=== PATIENT | male | born 1995 | race Hispanic/Latino ===

== ENCOUNTER 2022-08-24 01:14 | Emergency (ER) | payer OTHER ==
[~2022-08-24] VITALS: Ht 177.8 cm; Wt 97.8 kg
[2022-08-24] MEDS ORDERED: 0.9%NACL 1000ML 1,000 ML IV ONE ×2 (01:30→05:00)
[2022-08-24] MEDS ORDERED: IBUPROFEN 600 MG TABLET ONE (01:56)
[2022-08-24] MEDS ORDERED: IBUPROFEN 600 MG TABLET PO ONE (02:00)
[2022-08-24 03:17] LABS: BASOPHILS % (AUTO) 0.7 % (0.0-5.0); HEMATOCRIT 46.3 % (42-54); LYMPHOCYTES % (AUTO) 26.3 % (21.0-51.0); MEAN CORPUSCULAR HEMOGLOBIN 29.9 pg (27.0-33.0); MEAN CORPUSCULAR HGB CONC 34.1 g/dL (32.0-36.0); MEAN CORPUSCULAR VOLUME 87.7 fL (79-99); MONOCYTES % (AUTO) 10.4 % (3.0-13.0); NEUTROPHILS % (AUTO) 61.3 % (40.0-77.0); PLATELET COUNT (AUTO) 279 K/uL (130-400); RED BLOOD CELL COUNT(AUTO) 5.28 MIL/uL (4.50-6.20); RED CELL DISTRIBUTION WIDTH 12.5 % (11.0-15.5)
[2022-08-24 03:21] LABS: CARBON DIOXIDE 31 mmol/L (21-32); CHLORIDE 100 mmol/L (101-111); CREATININE 0.9 mg/dL (0.5-1.5); GLOMERULAR FILTR. RATE CALC 121 mL/min (>90); GLUCOSE,RANDOM 106 mg/dL (70-105); POTASSIUM 3.8 mmol/L (3.5-5.1); SODIUM SERUM 139 mmol/L (136-145); UREA NITROGEN, BLOOD 13 mg/dL (7-18)
[2022-08-24 03:26] LABS: ALANINE AMINOTRANSFERASE 111 U/L (12-78); ALBUMIN 3.6 g/dL (3.5-5.0); ASPARTATE AMINOTRANSFERASE 155 U/L (10-37); CREATINE KINASE, TOTAL 189 U/L (21-232); TOTAL PROTEIN, SERUM 6.8 g/dL (6.0-8.3)
[2022-08-24 03:42] LABS: ACETAMINOPHEN < 1 mcg/mL (10-29); SALICYLATE < 2.8 mg/dL (2.8-20.0)
[2022-08-24 12:20] VITALS: BP 135/68
[2022-08-24 13:46] LABS: AMPHET/METH SCREEN,URINE NEGATIVE (NEGATIVE); BARBITURATE SCREEN, URINE NEGATIVE (NEGATIVE); BENZODIAZEPINES SCREEN,URINE POSITIVE (NEGATIVE); CANNABINOID SCREEN,URINE POSITIVE (NEGATIVE); COCAINE SCREEN,URINE NEGATIVE (NEGATIVE); OPIATE SCREEN,URINE NEGATIVE (NEGATIVE); PHENCYCLIDINE SCREEN,URINE NEGATIVE (NEGATIVE)
== END 2022-08-24 16:09 | disposition left against medical advice (07) ==
LOC: EDH 01:14
DX: F10.129 Alcohol abuse with intoxication, unspecified (principal); F31.9 Bipolar disorder, unspecified; F41.9 Anxiety disorder, unspecified; Y90.8 Blood alcohol level of 240 mg/100 ml or more
CPT/HCPCS: 99283; 82550; 80053; 80305; 85025; 36415; G0481; J7030